=== PATIENT | male | born 1935 | race Caucasian/White ===

== ENCOUNTER 2023-04-26 18:56 | Emergency (ER) | payer MEDICARE ==
[2023-04-26] MEDS ORDERED: Bacitracin Oint 1 GM U/D Packet TOP ONE (19:16)
[2023-04-26] MEDS ORDERED: Lidocaine 1% 5 ML VIAL INJECT ONE (19:16)
[2023-04-26] MEDS ORDERED: Diphtheria,Pertussis(Acell),Tetanus Vaccine 0.5 ML Syringe IM ONE (19:16)
== END 2023-04-26 20:04 | disposition home or self-care (01) ==
LOC: JP.ED 18:56
DX: S61.411A Laceration without foreign body of right hand, initial encounter (principal); K21.9 Gastro-esophageal reflux disease without esophagitis; I48.91 Unspecified atrial fibrillation; Z88.2 Allergy status to sulfonamides; Z79.01 Long term (current) use of anticoagulants; Z79.899 Other long term (current) drug therapy; Z23 Encounter for immunization; W25.XXXA Contact with sharp glass, initial encounter
CPT/HCPCS: 12002; 90471; 90715; 99282-25; 99283